=== PATIENT | female | born 1965 | race Caucasian/White ===

== ENCOUNTER → 2017-06-03 | Outpatient (CLI) | payer BC ==
[~2017-06-03] MED LIST: GADOBUTROL 10 MMOL/10 ML PFS ONE
== END | disposition home or self-care (01) ==
LOC: RAD 09:21
PROVIDERS: ATTEND Nurse Practitioner Family
DX: M50.322 Other cervical disc degeneration at C5-C6 level (principal); M50.21 Other cervical disc displacement, high cervical region; M48.02 Spinal stenosis, cervical region; M25.78 Osteophyte, vertebrae; M40.292 Other kyphosis, cervical region
CPT/HCPCS: 70553; 72141; A9585

== ENCOUNTER → 2018-04-02 | Outpatient (CLI) | payer BC | END | disposition home or self-care (01) | LOC: CFH 09:06 | PROVIDERS: ATTEND Family Medicine | DX: R10.13 Epigastric pain (principal) | CPT/HCPCS: 76700 ==

== ENCOUNTER → 2018-10-31 | Outpatient (CLI) | payer OTHER ==
[~2018-10-31] MED LIST changes: -GADOBUTROL 10 MMOL/10 ML PFS ONE; +SINCALIDE (KINEVAC) 5 MCG ONE
== END | disposition home or self-care (01) ==
LOC: PETCFH 07:09
PROVIDERS: ATTEND Nurse Practitioner Family
DX: R10.13 Epigastric pain (principal)
CPT/HCPCS: 78227; A9537; J2805

== ENCOUNTER 2019-12-31 08:15 | Day surgery (SDC) | payer OTHER ==
[~2019-12-31] VITALS: Ht 165.1 cm; Wt 92.7 kg
[~2019-12-31 08:15] MED LIST changes: +ATOR20TA37 PO; +DULO30CA2 PO; -SINCALIDE (KINEVAC) 5 MCG ONE
[2019-12-31] MEDS ORDERED: SODIUM BICARBONATE 4.2%, 5ML ONE (08:32)
[2019-12-31] MEDS ORDERED: LIDOCAINE 1%-EPI 1:100K, 20ML ONE (08:32)
[2019-12-31] MEDS ORDERED: LIDOCAINE 1%, 20ML ONE (08:32)
[2019-12-31 09:50] VITALS: BP 145/82
[2019-12-31] MEDS ORDERED: LACTATED RINGERS 1,000 ML IV SCH (09:54)
[2019-12-31] MEDS ORDERED: CHLORHEXIDINE 15 ML UDC MM ONE (10:00)
[2019-12-31] MEDS ORDERED: CHLORHEXIDINE 15 ML UDC ONE (10:06)
[2019-12-31] MEDS ORDERED: [UNRECOGNIZED DRUG - OTHER] PO (10:22)
[2019-12-31] MEDS ORDERED: ISOSULFAN BLUE 10 MG/ML, 5ML IV ONE (11:09)
[2019-12-31] MEDS ORDERED: BUPIVACAINE/PF-EPI 0.5% 1:200K ONE ×2 (11:09→14:36)
[2019-12-31] MEDS ORDERED: MIDAZOLAM 1 MG/ML, 2ML ONE (14:29)
[2019-12-31] MEDS ORDERED: FENTANYL PF 100 MCG/2ML ONE (14:29)
[2019-12-31] MEDS ORDERED: LIDOCAINE PF 2%, 5ML ONE (14:43)
[2019-12-31] MEDS ORDERED: NEOSTIGMINE 1 MG/ML, 10ML ONE (14:43)
[2019-12-31] MEDS ORDERED: CEFAZOLIN 1,000 MG ONE (14:43)
[2019-12-31] MEDS ORDERED: DEXAMETHASONE 4 MG/ML, 1ML ONE (14:43)
[2019-12-31] MEDS ORDERED: ROCURONIUM 10 MG/ML,10ML ONE (14:43)
[2019-12-31] MEDS ORDERED: PROPOFOL 10 MG/ML, 20ML ONE (14:43)
[2019-12-31] MEDS ORDERED: ONDANSETRON 2MG/ML, 2ML ONE ×2 (14:43→18:01)
[2019-12-31] MEDS ORDERED: GLYCOPYRROLATE 0.2MG/1ML, 5ML ONE (14:43)
[2019-12-31] MEDS ORDERED: ONDANSETRON 2MG/ML, 2ML IVPush PRN (18:00)
== END 2019-12-31 18:50 | disposition home or self-care (01) ==
LOC: SDC 08:15 → EDSTATUS 13:00 → OUT 18:50
PROVIDERS: ATTEND Surgery
DX: D48.61 Neoplasm of uncertain behavior of right breast (principal); N60.41 Mammary duct ectasia of right breast; E78.5 Hyperlipidemia, unspecified; F41.9 Anxiety disorder, unspecified
CPT/HCPCS: 19125; 19285; 76098; 77065; 88305; J0690; J1100; J2250; J2405; J2704; J2710; J3010; J3490; J7120; U0001